=== PATIENT | female | born 1965 | race Two or more races ===

== ENCOUNTER 2023-06-24 13:27 | Emergency (ER) | payer MEDICAID ==
[~2023-06-24] VITALS: Ht 177.8 cm; Wt 63.0 kg
[2023-06-24 14:01] VITALS: BP 119/73; RESP 16; O2SAT 98
[2023-06-24 14:16] LABS: Basophils # (auto) 0.1 10 ^3/uL (0-0.2); Basophils % (auto) 0.4 % (0.0-2.0); Eosinophils # (auto) 0.2 10 ^3/uL (0-0.8); Eosinophils % (auto) 1.3 % (0.0-7.0); Hematocrit 39.5 % (36.0-46.0); Hemoglobin 13.2 g/dL (12.2-16.2); Lymphocytes % (auto) 25.2 % (10.0-50.0); Mean Corpuscular Hgb Conc. 33.4 g/dL (32.0-36.0); Mean Corpuscular Volume 86.8 fL (80.0-100.0); Monocytes # (auto) 0.7 10 ^3/uL (0-1.3); Monocytes % (auto) 5.6 % (0.0-12.0); Neutrophils # (auto) 8.1 10 ^3/uL (1.6-8.6); Neutrophils % (auto) 67.5 % (37.0-80.0); Nucleated Red Blood Cells % 0.1 %; Red Blood Cells 4.56 10^6/uL (4.0-5.20); Red Cell Distribution Width 14.4 % (11.8-14.3); White Blood Cell 11.9 10^3/uL (4.4-10.8)
[2023-06-24 14:31] LABS: Alanine Aminotransferase 10 U/L (7-40); Alkaline Phosphatase 148 U/L (46-116); Anion Gap 5 (5-15); Aspartate Aminotransferase 9 U/L (13-40); BUN/Creatinine Ratio 15.1 (10.0-20.0); Blood Urea Nitrogen 11 mg/dL (9-23); Calcium 10.9 mg/dL (8.7-10.4); Carbon Dioxide 29 mmol/L (20-30); Chloride 107 mmol/L (98-107); Glucose 113 mg/dL (74-106); Lipase 40 U/L (12-53); Sodium 141 mmol/L (136-145)
[2023-06-24 14:32] LABS: Albumin 4.2 g/dL (3.2-4.8); Bilirubin, Total 0.4 mg/dL (0.2-1.0); Total Protein 6.8 g/dL (5.7-8.2)
[2023-06-24 14:52] LABS: Urine Bacteria NONE SEEN /hpf (None Seen); Urine Blood Negative /uL (Negative); Urine Clarity HAZY (Clear); Urine Color Yellow (Yellow); Urine Protein, UAD Negative (Negative); Urine Specific Gravity 1.016 (1.001-1.035); Urine Urobilinogen Normal (Negative); Urine WBC 7 /hpf (0 - 5); Urine pH 6.5 (5.0-8.0)
[2023-06-24] MEDS ORDERED: PANTOPRAZOLE 40 MG/10 ML VIAL INJ IV ONE (15:45)
[2023-06-24 15:46] VITALS: PULSE 70
== END 2023-06-24 17:38 | disposition left against medical advice (07) ==
LOC: ER 13:27
DX: K44.9 Diaphragmatic hernia without obstruction or gangrene (principal); R10.32 Left lower quadrant pain; R10.12 Left upper quadrant pain; K21.9 Gastro-esophageal reflux disease without esophagitis; Z90.49 Acquired absence of other specified parts of digestive tract; Z98.890 Other specified postprocedural states
CPT/HCPCS: 36415; 74176; 80053; 81001; 83605; 83690; 84484; 85025; 93005

== ENCOUNTER 2023-06-29 08:35 | Inpatient (IN) | payer MEDICAID ==
[~2023-06-29] VITALS: Ht 165.1 cm; Wt 68.0 kg
[2023-06-29 09:01] LABS: Urine Bacteria None Seen /hpf (None Seen); Urine WBC None Seen /hpf (0 - 5)
[2023-06-29 10:08] LABS: Basophils # (auto) 0 10 ^3/uL (0-0.2); Basophils % (auto) 0.7 % (0.0-2.0); Eosinophils # (auto) 0.1 10 ^3/uL (0-0.8); Hematocrit 40.8 % (36.0-46.0); Hemoglobin 13.6 g/dL (12.2-16.2); Lymphocytes # (auto) 3.1 10 ^3/uL (0.4-5.4); Lymphocytes % (auto) 44.9 % (10.0-50.0); Mean Corpuscular Hgb Conc. 33.3 g/dL (32.0-36.0); Mean Corpuscular Volume 87.1 fL (80.0-100.0); Monocytes # (auto) 0.6 10 ^3/uL (0-1.3); Monocytes % (auto) 8.5 % (0.0-12.0); Neutrophils % (auto) 43.9 % (37.0-80.0); Red Blood Cells 4.68 10^6/uL (4.0-5.20); Red Cell Distribution Width 14.2 % (11.8-14.3); White Blood Cell 6.8 10^3/uL (4.4-10.8)
[2023-06-29 10:09] LABS: Urine Clarity CLEAR (Clear); Urine Color Yellow (Yellow); Urine Specific Gravity 1.025 (1.001-1.035)
[2023-06-29 10:13] LABS: Urine Protein, UAD Trace (Negative); Urine Urobilinogen Normal (Negative); Urine pH 5 (5.0-8.0)
[2023-06-29 10:35] LABS: Albumin 4.2 g/dL (3.2-4.8); Alkaline Phosphatase 132 U/L (46-116); Anion Gap 5 (5-15); Aspartate Aminotransferase 8 U/L (13-40); BUN/Creatinine Ratio 18.1 (10.0-20.0); Blood Urea Nitrogen 13 mg/dL (9-23); Calcium 10.8 mg/dL (8.5-10.1); Carbon Dioxide 28 mmol/L (20-30); Chloride 107 mmol/L (98-107); Glucose 101 mg/dL (74-106); Sodium 140 mmol/L (136-145)
[2023-06-29 10:36] LABS: Bilirubin, Total 0.6 mg/dL (0.2-1.0); Total Protein 7.1 g/dL (5.7-8.2)
[2023-06-29 11:07] LABS: Alanine Aminotransferase < 9 U/L (7-40)
[2023-06-29 13:01] LABS: Urine Blood Negative /uL (Negative)
[2023-06-29] MEDS ORDERED: DONNATAL 5ml ORAL Elix (BELLADONNA ALK-PHENOBARB) PO ONE (13:15)
[2023-06-29] MEDS ORDERED: MAALOX PLUS or MAALOX 30 ML PO ONE (13:15)
[2023-06-29] MEDS ORDERED: LIDOCAINE VISCOUS 2% 15ML UD PO ONE (13:15)
[2023-06-29] MEDS ORDERED: ONDANSETRON HCL 4 MG/2 ML VIAL IV ONE (15:00)
[2023-06-29] MEDS ORDERED: SODIUM CHLORIDE 0.9% 1,000 ML IV ONE (15:00)
[2023-06-29] MEDS ORDERED: MORPHINE SULFATE 4 MG/ML SYR/VIAL IV ONE (15:00)
[2023-06-29 15:56] LABS: INR 1.06 (0.9-1.15); Partial Thromboplastin Time 30.2 SEC (24.5-34.5); Prothrombin Time 11.1 sec (9.3-11.8)
[2023-06-29] MEDS ORDERED: MORPHINE SULFATE INJ 2 MG/ml SYRG IV PRN (18:00)
[2023-06-29] MEDS ORDERED: NITROGLYCERIN 0.4 MG SL TAB SL PRN (18:00)
[2023-06-29 19:16] LABS: Albumin 4.3 g/dL (3.2-4.8); Alkaline Phosphatase 148 U/L (46-116); Aspartate Aminotransferase < 8 U/L (13-40); Lipase 42 U/L (12-53); Magnesium 2.3 mg/dL (1.6-2.6)
[2023-06-29 19:17] LABS: Bilirubin, Total 0.4 mg/dL (0.2-1.0); Total Protein 7.1 g/dL (5.7-8.2)
[2023-06-29 19:21] LABS: Alanine Aminotransferase < 9 U/L (7-40)
[2023-06-29 19:35] LABS: Bilirubin, Direct 0.2 mg/dL (<0.3)
[2023-06-30 05:00] VITALS: BP 106/56; PULSE 53; RESP 17; TEMP 97.9; O2SAT 99
[2023-06-30] MEDS ORDERED: CHOL20002 (05:59)
[2023-06-30] MEDS ORDERED: PANT40T (05:59)
[2023-06-30 07:04] LABS: Chloride 110 mmol/L (98-107); Potassium 3.9 mmol/L (3.5-5.1); Sodium 141 mmol/L (136-145)
[2023-06-30 07:05] LABS: Anion Gap 3 (5-15); Calcium 10.3 mg/dL (8.7-10.4); Carbon Dioxide 28 mmol/L (20-30)
[2023-06-30 07:09] LABS: Basophils # (auto) 0 10 ^3/uL (0-0.2); Basophils % (auto) 0.3 % (0.0-2.0); Eosinophils # (auto) 0.2 10 ^3/uL (0-0.8); Eosinophils % (auto) 2.8 % (0.0-7.0); Hematocrit 38.2 % (36.0-46.0); Hemoglobin 12.9 g/dL (12.2-16.2); Lymphocytes # (auto) 2.8 10 ^3/uL (0.4-5.4); Lymphocytes % (auto) 45.1 % (10.0-50.0); Mean Corpuscular Hemoglobin 29.4 pg (28.0-32.0); Mean Corpuscular Hgb Conc. 33.9 g/dL (32.0-36.0); Mean Corpuscular Volume 86.8 fL (80.0-100.0); Monocytes # (auto) 0.5 10 ^3/uL (0-1.3); Monocytes % (auto) 8.5 % (0.0-12.0); Neutrophils # (auto) 2.7 10 ^3/uL (1.6-8.6); Neutrophils % (auto) 43.3 % (37.0-80.0); Nucleated Red Blood Cells % 0.1 %; Red Cell Distribution Width 14.1 % (11.8-14.3); White Blood Cell 6.3 10^3/uL (4.4-10.8)
[2023-06-30 07:10] LABS: BUN/Creatinine Ratio 16.4 (10.0-20.0); Blood Urea Nitrogen 12 mg/dL (9-23); Glucose 104 mg/dL (74-106)
[2023-06-30 09:00] VITALS: BP 102/62; PULSE 50; RESP 16; TEMP 98; O2SAT 96
[2023-06-30] MEDS: SODIUM CHLORIDE 0.9% 1,000 ML IV SCH ×2 (09:56→20:52)
[2023-06-30 13:00] VITALS: BP 107/64; PULSE 54; RESP 16; TEMP 98.1; O2SAT 94
[2023-06-30 16:33] VITALS: BP 123/63; PULSE 54; RESP 18; TEMP 98.7; O2SAT 96
[2023-06-30 20:00] VITALS: RESP 18; O2SAT 98
[2023-06-30 23:33] VITALS: BP 116/62; PULSE 50; RESP 18; TEMP 98.2; O2SAT 97
[2023-07-01] VITALS (9 sets, daily range): BP systolic 100–120; BP diastolic 59–64; PULSE 52–67; RESP 11–20; TEMP 97.6–98.1; O2SAT 95–99
[2023-07-01] MEDS ORDERED: FLUMAZENIL 0.1 MG/ML INJ 10ML MDV IV ONE (09:03)
[2023-07-01] MEDS ORDERED: NALOXONE HCL 0.4 MG/ML VIAL ONE (09:03)
[2023-07-01] MEDS: SODIUM CHLORIDE 0.9% 1,000 ML IV SCH ×2 (11:12→23:27)
[2023-07-01] MEDS ORDERED: LIDOCAINE VISCOUS 2% 15ML UD ONE (12:21)
[2023-07-01] MEDS ORDERED: SODIUM CHLORIDE LOCK 10 ML ONE (12:21)
[2023-07-01] MEDS: fentaNYL CITRATE 100 MCG/2 ML VL ONE ×2 (15:14→15:23)
[2023-07-01] MEDS: MIDAZOLAM HCL 5 MG/ML-1ML VIAL ONE ×2 (15:14→15:23)
[2023-07-01] MEDS: diphenhdrAMINE HCL 50 MG/1 ML VL ONE ×2 (15:14→15:17)
[2023-07-01] MEDS ORDERED: SUCRALFATE 1 GM/10 ML ORAL SUSP PO SCH (17:00)
[2023-07-01] MEDS ORDERED: CLINIMIX PER PHARMACY 0 ML IV SCH (17:45)
[2023-07-01] MEDS ORDERED: AMINO ACID INFUSION IN D10W 1,000 ML IV NR (20:00)
[2023-07-01] MEDS: ACCU-CHEK COMFORT CURVE STRIP VI SCH (23:27)
[2023-07-01] MEDS: InsuLIN REG 1unit/0.01ml Soln (100units/ml) SC SCH (23:27)
[2023-07-02] VITALS (7 sets, daily range): BP systolic 108–128; BP diastolic 58–70; PULSE 45–62; RESP 16–20; TEMP 97.8–98.4; O2SAT 96–100
[2023-07-02] MEDS ORDERED: DEXTROSE (50%) 50ML SYRG IV SCH
[2023-07-02] MEDS: ACCU-CHEK COMFORT CURVE STRIP VI SCH ×3 (05:24→18:40)
[2023-07-02] MEDS: InsuLIN REG 1unit/0.01ml Soln (100units/ml) SC SCH ×3 (05:24→18:00)
[2023-07-02 06:38] LABS: Potassium 3.9 mmol/L (3.5-5.1)
[2023-07-02 06:39] LABS: Calcium 10.2 mg/dL (8.7-10.4)
[2023-07-02 06:44] LABS: BUN/Creatinine Ratio 14.3 (10.0-20.0); Magnesium 1.9 mg/dL (1.6-2.6)
[2023-07-02 06:46] LABS: Albumin 3.6 g/dL (3.2-4.8); Phosphorus 2.3 mg/dL (2.4-5.1)
[2023-07-02 09:34] LABS: Hepatitis B Surface Antigen Negative (Negative)
[2023-07-02 09:45] LABS: Hepatitis C Antibody Negative (Negative)
[2023-07-02] MEDS ORDERED: SODIUM PHOSPHATES 20 MEQ in SODIUM CHL 0.9% 100 ML IV ONE (09:45)
[2023-07-02] MEDS ORDERED: GASTROGRAFIN 30 ML SOL ONE (09:49)
[2023-07-02] MEDS ORDERED: EZ-GAS II GRANULES (RADIOLOGY USE) PO ONE (09:56)
[2023-07-02] MEDS: SODIUM CHLORIDE 0.9% 1,000 ML IV SCH (12:26)
[2023-07-02] MEDS: AMINO ACID INFUSION IN D10W 1,000 ML IV NR (20:00)
[2023-07-03] MEDS: SODIUM CHLORIDE 0.9% 1,000 ML IV SCH ×2 (03:03→16:30)
[2023-07-03] MEDS: ACCU-CHEK COMFORT CURVE STRIP VI SCH ×4 (05:57→18:24)
[2023-07-03] MEDS: InsuLIN REG 1unit/0.01ml Soln (100units/ml) SC SCH ×4 (05:58→18:00)
[2023-07-03 07:02] LABS: Basophils # (auto) 0 10 ^3/uL (0-0.2); Basophils % (auto) 0.5 % (0.0-2.0); Eosinophils # (auto) 0.2 10 ^3/uL (0-0.8); Eosinophils % (auto) 2.1 % (0.0-7.0); Hematocrit 40.1 % (36.0-46.0); Hemoglobin 13.7 g/dL (12.2-16.2); Lymphocytes # (auto) 2.8 10 ^3/uL (0.4-5.4); Lymphocytes % (auto) 34.2 % (10.0-50.0); Mean Corpuscular Hemoglobin 29.5 pg (28.0-32.0); Mean Corpuscular Hgb Conc. 34.1 g/dL (32.0-36.0); Mean Corpuscular Volume 86.5 fL (80.0-100.0); Monocytes # (auto) 0.6 10 ^3/uL (0-1.3); Monocytes % (auto) 7.7 % (0.0-12.0); Neutrophils # (auto) 4.5 10 ^3/uL (1.6-8.6); Neutrophils % (auto) 55.5 % (37.0-80.0); Nucleated Red Blood Cells % 0.1 %; Red Blood Cells 4.63 10^6/uL (4.0-5.20); Red Cell Distribution Width 13.5 % (11.8-14.3); White Blood Cell 8.1 10^3/uL (4.4-10.8)
[2023-07-03 07:22] LABS: Albumin 3.8 g/dL (3.2-4.8); Alkaline Phosphatase 117 U/L (46-116); Anion Gap 4 (5-15); Aspartate Aminotransferase 10 U/L (13-40); BUN/Creatinine Ratio 9.9 (10.0-20.0); Blood Urea Nitrogen 7 mg/dL (9-23); Calcium 10.3 mg/dL (8.7-10.4); Carbon Dioxide 26 mmol/L (20-30); Chloride 109 mmol/L (98-107); Glucose 111 mg/dL (74-106); Magnesium 1.9 mg/dL (1.6-2.6); Potassium 3.7 mmol/L (3.5-5.1); Sodium 139 mmol/L (136-145)
[2023-07-03 07:23] LABS: Bilirubin, Total 0.4 mg/dL (0.2-1.0); Phosphorus 2.7 mg/dL (2.4-5.1); Total Protein 6.3 g/dL (5.7-8.2)
[2023-07-03 07:28] LABS: Alanine Aminotransferase < 9 U/L (7-40)
[2023-07-03 08:30] VITALS: PULSE 55; RESP 18; O2SAT 98
[2023-07-03 09:00] VITALS: BP 108/66; PULSE 57; RESP 18; TEMP 98; O2SAT 98
[2023-07-03] MEDS ORDERED: ceFAZolin 1GM/50ML 100 ML IV ONE (11:29)
[2023-07-03] MEDS ORDERED: MIDAZOLAM HCL 2MG/2ML 2ml VIAL (1mg/ml) ONE (12:32)
[2023-07-03] MEDS ORDERED: fentaNYL CITRATE 100 MCG/2 ML VL ONE ×2 (12:32→13:20)
[2023-07-03] MEDS ORDERED: HYDROmorphone HCL 2 MG/ML VL/or syr ONE (12:32)
[2023-07-03] MEDS ORDERED: DexAMETHasone SOD PHOS 10MG/1ML VIAL INJ ONE (13:08)
[2023-07-03] MEDS ORDERED: MIDAZOLAM HCL 2MG/2ML 2ml VIAL (1mg/ml) IV PRN (13:15)
[2023-07-03] MEDS ORDERED: LABETALOL HCL 5 MG/ML 4ML SYRINGE IV PRN (13:15)
[2023-07-03] MEDS ORDERED: KETOROLAC TROMETH 30 MG/ML 1ML VIAL IV ONE (13:15)
[2023-07-03] MEDS ORDERED: ePHEDrine SULFATE 50 MG/ML AMP IV PRN (13:15)
[2023-07-03] MEDS ORDERED: MORPHINE SULFATE 4 MG/ML SYR/VIAL IV PRN (13:15)
[2023-07-03] MEDS ORDERED: ONDANSETRON HCL 4 MG/2 ML VIAL IV PRN (13:15)
[2023-07-03] MEDS ORDERED: diphenhdrAMINE HCL 50 MG/1 ML VL ONE (13:20)
[2023-07-03] MEDS ORDERED: ONDANSETRON HCL 4 MG/2 ML VIAL ONE (13:29)
[2023-07-03] MEDS ORDERED: SUGAMMADEX 200mg/2ml Vial (100MG/ML) IV ONE (14:05)
[2023-07-03 14:41] VITALS: O2SAT 99
[2023-07-03] MEDS: HYDROmorphone HCL 2 MG/ML VL/or syr IV PRN ×2 (14:51→15:19)
[2023-07-03 17:00] VITALS: BP 132/82; PULSE 76; RESP 14; TEMP 97.5; O2SAT 99
[2023-07-03] MEDS ORDERED: metroNIDAZOLE 500MG/100ML 100 ML IV ONE (17:45)
[2023-07-03] MEDS: ONDANSETRON HCL 4 MG/2 ML VIAL IV PRN (18:24)
[2023-07-03] MEDS: MORPHINE SULFATE INJ 2 MG/ml SYRG IV PRN (18:25)
[2023-07-03 20:00] VITALS: PULSE 69; RESP 17; O2SAT 96
[2023-07-03] MEDS: metroNIDAZOLE 500MG/100ML 100 ML IV SCH (21:51)
[2023-07-03] MEDS: AMINO ACID INFUSION IN D10W 1,000 ML IV NR (21:51)
[2023-07-03 22:00] VITALS: BP_SYST 119; BP_SYST 137; BP_DIAS 78; BP_DIAS 79; PULSE 69; PULSE 83; RESP 18; TEMP 98; TEMP 99.6; O2SAT 95; O2SAT 96
[2023-07-04] VITALS (7 sets, daily range): BP systolic 130–135; BP diastolic 50–79; PULSE 61–84; RESP 14–19; TEMP 98–98.7; O2SAT 93–99
[2023-07-04] MEDS: ACCU-CHEK COMFORT CURVE STRIP VI SCH ×5 (00:02→23:36)
[2023-07-04] MEDS: InsuLIN REG 1unit/0.01ml Soln (100units/ml) SC SCH ×5 (00:09→23:36)
[2023-07-04] MEDS: ONDANSETRON HCL 4 MG/2 ML VIAL IV PRN ×2 (03:59→09:23)
[2023-07-04] MEDS: MORPHINE SULFATE INJ 2 MG/ml SYRG IV PRN ×5 (04:00→23:43)
[2023-07-04] MEDS: metroNIDAZOLE 500MG/100ML 100 ML IV SCH ×3 (05:39→21:07)
[2023-07-04] MEDS: SODIUM CHLORIDE 0.9% 1,000 ML IV SCH ×2 (05:46→17:42)
[2023-07-04 06:19] LABS: Basophils # (auto) 0 10 ^3/uL (0-0.2); Basophils % (auto) 0.1 % (0.0-2.0); Eosinophils # (auto) 0 10 ^3/uL (0-0.8); Hematocrit 42.2 % (36.0-46.0); Hemoglobin 14.2 g/dL (12.2-16.2); Lymphocytes # (auto) 1.4 10 ^3/uL (0.4-5.4); Lymphocytes % (auto) 9.8 % (10.0-50.0); Mean Corpuscular Hemoglobin 28.8 pg (28.0-32.0); Mean Corpuscular Hgb Conc. 33.5 g/dL (32.0-36.0); Monocytes % (auto) 6.9 % (0.0-12.0); Neutrophils # (auto) 12.3 10 ^3/uL (1.6-8.6); Neutrophils % (auto) 83.2 % (37.0-80.0); Nucleated Red Blood Cells % 0.1 %; Red Blood Cells 4.91 10^6/uL (4.0-5.20); Red Cell Distribution Width 14.1 % (11.8-14.3); White Blood Cell 14.7 10^3/uL (4.4-10.8)
[2023-07-04 06:35] LABS: Anion Gap 5 (5-15); Carbon Dioxide 25 mmol/L (20-30); Chloride 108 mmol/L (98-107); Potassium 3.9 mmol/L (3.5-5.1); Sodium 138 mmol/L (136-145)
[2023-07-04 06:36] LABS: Calcium 10.5 mg/dL (8.5-10.1)
[2023-07-04 06:40] LABS: GFR African American 136 mL/min; GFR Non-African American 112 mL/min; Glucose 136 mg/dL (74-106)
[2023-07-04 06:41] LABS: BUN/Creatinine Ratio 11.9 (10.0-20.0); Blood Urea Nitrogen 7 mg/dL (9-23)
[2023-07-04 06:42] LABS: Albumin 3.8 g/dL (3.2-4.8)
[2023-07-04 07:07] LABS: Magnesium 1.7 mg/dL (1.6-2.6)
[2023-07-04] MEDS: PANTOPRAZOLE 40 MG/10 ML VIAL INJ IV SCH (09:23)
[2023-07-04] MEDS: AMINO ACID INFUSION IN D10W 1,000 ML IV NR (21:06)
[2023-07-05 05:00] VITALS: BP 114/69; PULSE 78; RESP 16; TEMP 98.9; O2SAT 92
[2023-07-05] MEDS: metroNIDAZOLE 500MG/100ML 100 ML IV SCH ×3 (05:33→21:08)
[2023-07-05] MEDS: ACCU-CHEK COMFORT CURVE STRIP VI SCH ×3 (05:46→17:22)
[2023-07-05] MEDS: InsuLIN REG 1unit/0.01ml Soln (100units/ml) SC SCH ×3 (05:46→17:22)
[2023-07-05 06:01] LABS: Basophils # (auto) 0 10 ^3/uL (0-0.2); Basophils % (auto) 0.3 % (0.0-2.0); Eosinophils # (auto) 0 10 ^3/uL (0-0.8); Eosinophils % (auto) 0.5 % (0.0-7.0); Hematocrit 40.1 % (36.0-46.0); Hemoglobin 13.8 g/dL (12.2-16.2); Lymphocytes # (auto) 1.2 10 ^3/uL (0.4-5.4); Lymphocytes % (auto) 12.7 % (10.0-50.0); Mean Corpuscular Hemoglobin 29.5 pg (28.0-32.0); Mean Corpuscular Hgb Conc. 34.5 g/dL (32.0-36.0); Mean Corpuscular Volume 85.6 fL (80.0-100.0); Monocytes # (auto) 0.7 10 ^3/uL (0-1.3); Monocytes % (auto) 7.3 % (0.0-12.0); Neutrophils # (auto) 7.4 10 ^3/uL (1.6-8.6); Neutrophils % (auto) 79.2 % (37.0-80.0); Red Blood Cells 4.69 10^6/uL (4.0-5.20); White Blood Cell 9.3 10^3/uL (4.4-10.8)
[2023-07-05 06:06] LABS: Chloride 105 mmol/L (98-107); Potassium 3.3 mmol/L (3.5-5.1); Sodium 136 mmol/L (136-145)
[2023-07-05 06:07] LABS: Anion Gap 5 (5-15); Calcium 10.2 mg/dL (8.7-10.4); Carbon Dioxide 26 mmol/L (20-30)
[2023-07-05 06:12] LABS: Albumin 3.7 g/dL (3.2-4.8); BUN/Creatinine Ratio 12.9 (10.0-20.0); Blood Urea Nitrogen 8 mg/dL (9-23); GFR African American 128 mL/min; GFR Non-African American 106 mL/min; Glucose 133 mg/dL (74-106)
[2023-07-05 06:13] LABS: Magnesium 1.7 mg/dL (1.6-2.6)
[2023-07-05 06:14] LABS: Phosphorus 1.8 mg/dL (2.4-5.1)
[2023-07-05] MEDS: SODIUM CHLORIDE 0.9% 1,000 ML IV SCH ×2 (08:30→23:49)
[2023-07-05 09:00] VITALS: BP 117/71; PULSE 72; RESP 20; TEMP 99.3; O2SAT 94
[2023-07-05] MEDS ORDERED: POTASSIUM PHOSPHATE 44 MEQ in D5W 5% 250 ML IV ONE (10:00)
[2023-07-05] MEDS ORDERED: POTASSIUM PHOSPHATE 22 MEQ in SODIUM CHL 0.9% 100 ML IV ONE (11:15)
[2023-07-05] MEDS: PANTOPRAZOLE 40 MG/10 ML VIAL INJ IV SCH (12:39)
[2023-07-05 13:00] VITALS: BP 126/71; PULSE 77; RESP 19; TEMP 98.8; O2SAT 92
[2023-07-05 17:00] VITALS: BP 120/74; PULSE 67; RESP 17; TEMP 98.5; O2SAT 93
[2023-07-05] MEDS: ONDANSETRON HCL 4 MG/2 ML VIAL IV PRN (17:26)
[2023-07-05 20:00] VITALS: O2SAT 98
[2023-07-05] MEDS: AMINO ACID INFUSION IN D10W 1,000 ML IV NR (21:12)
[2023-07-05 22:00] VITALS: BP 116/70; PULSE 78; RESP 15; TEMP 98.9; O2SAT 93
[2023-07-06] MEDS: InsuLIN REG 1unit/0.01ml Soln (100units/ml) SC SCH ×5 (00:02→23:23)
[2023-07-06 05:00] VITALS: BP 112/73; PULSE 65; RESP 15; TEMP 98.2; O2SAT 92
[2023-07-06] MEDS: metroNIDAZOLE 500MG/100ML 100 ML IV SCH ×3 (05:16→21:11)
[2023-07-06] MEDS: ACCU-CHEK COMFORT CURVE STRIP VI SCH ×5 (05:25→23:24)
[2023-07-06 06:32] LABS: Basophils # (auto) 0 10 ^3/uL (0-0.2); Basophils % (auto) 0.6 % (0.0-2.0); Eosinophils # (auto) 0.2 10 ^3/uL (0-0.8); Hematocrit 40.6 % (36.0-46.0); Hemoglobin 13.7 g/dL (12.2-16.2); Lymphocytes # (auto) 2.2 10 ^3/uL (0.4-5.4); Lymphocytes % (auto) 28.5 % (10.0-50.0); Mean Corpuscular Hemoglobin 28.9 pg (28.0-32.0); Mean Corpuscular Hgb Conc. 33.8 g/dL (32.0-36.0); Mean Corpuscular Volume 85.7 fL (80.0-100.0); Monocytes # (auto) 0.8 10 ^3/uL (0-1.3); Monocytes % (auto) 10.4 % (0.0-12.0); Neutrophils # (auto) 4.4 10 ^3/uL (1.6-8.6); Neutrophils % (auto) 57.5 % (37.0-80.0); Nucleated Red Blood Cells % 0.4 %; Red Blood Cells 4.74 10^6/uL (4.0-5.20); Red Cell Distribution Width 14.2 % (11.8-14.3); White Blood Cell 7.6 10^3/uL (4.4-10.8)
[2023-07-06 06:42] LABS: Alanine Aminotransferase 10 U/L (7-40); Alkaline Phosphatase 96 U/L (46-116); Anion Gap 7 (5-15); BUN/Creatinine Ratio 16.2 (10.0-20.0); Blood Urea Nitrogen 11 mg/dL (9-23); Calcium 10.6 mg/dL (8.7-10.4); Carbon Dioxide 25 mmol/L (20-30); Chloride 106 mmol/L (98-107); Glucose 123 mg/dL (74-106); Magnesium 1.8 mg/dL (1.6-2.6); Potassium 3.5 mmol/L (3.5-5.1); Sodium 138 mmol/L (136-145)
[2023-07-06 06:43] LABS: Albumin 3.7 g/dL (3.2-4.8); Aspartate Aminotransferase < 8 U/L (13-40)
[2023-07-06 06:44] LABS: Bilirubin, Total 0.5 mg/dL (0.2-1.0); Total Protein 6.3 g/dL (5.7-8.2)
[2023-07-06 08:00] VITALS: PULSE 65; RESP 18; O2SAT 92
[2023-07-06 09:00] VITALS: BP 113/71; PULSE 65; RESP 18; TEMP 98.4; O2SAT 92
[2023-07-06] MEDS: PANTOPRAZOLE 40 MG/10 ML VIAL INJ IV SCH (10:32)
[2023-07-06 13:00] VITALS: BP 108/75; PULSE 72; RESP 20; TEMP 97.5; O2SAT 93
[2023-07-06] MEDS: SODIUM CHLORIDE 0.9% 1,000 ML IV SCH ×2 (13:03→21:24)
[2023-07-06] MEDS: MORPHINE SULFATE INJ 2 MG/ml SYRG IV PRN (14:09)
[2023-07-06 17:00] VITALS: BP 111/77; PULSE 71; RESP 20; TEMP 98.5; O2SAT 97
[2023-07-06] MEDS: AMINO ACID INFUSION IN D10W 1,000 ML IV NR (21:11)
[2023-07-07] MEDS: metroNIDAZOLE 500MG/100ML 100 ML IV SCH ×3 (05:20→22:24)
[2023-07-07] MEDS: ACCU-CHEK COMFORT CURVE STRIP VI SCH ×3 (05:27→17:19)
[2023-07-07] MEDS: InsuLIN REG 1unit/0.01ml Soln (100units/ml) SC SCH ×3 (05:27→17:19)
[2023-07-07 06:18] LABS: Potassium 3.2 mmol/L (3.5-5.1)
[2023-07-07 06:19] LABS: Calcium 10.4 mg/dL (8.7-10.4)
[2023-07-07 06:24] LABS: BUN/Creatinine Ratio 19.3 (10.0-20.0)
[2023-07-07 06:25] LABS: Albumin 3.5 g/dL (3.2-4.8); Magnesium 1.9 mg/dL (1.6-2.6)
[2023-07-07 06:26] LABS: Phosphorus 2.5 mg/dL (2.4-5.1)
[2023-07-07 06:39] LABS: Basophils # (auto) 0 10 ^3/uL (0-0.2); Basophils % (auto) 0.5 % (0.0-2.0); Eosinophils # (auto) 0.3 10 ^3/uL (0-0.8); Eosinophils % (auto) 3.5 % (0.0-7.0); Hematocrit 39.2 % (36.0-46.0); Hemoglobin 13.2 g/dL (12.2-16.2); Lymphocytes # (auto) 1.9 10 ^3/uL (0.4-5.4); Lymphocytes % (auto) 22.6 % (10.0-50.0); Mean Corpuscular Hemoglobin 29.1 pg (28.0-32.0); Mean Corpuscular Hgb Conc. 33.7 g/dL (32.0-36.0); Mean Corpuscular Volume 86.3 fL (80.0-100.0); Monocytes # (auto) 0.7 10 ^3/uL (0-1.3); Monocytes % (auto) 8.6 % (0.0-12.0); Neutrophils # (auto) 5.5 10 ^3/uL (1.6-8.6); Neutrophils % (auto) 64.8 % (37.0-80.0); Red Blood Cells 4.54 10^6/uL (4.0-5.20); Red Cell Distribution Width 14.1 % (11.8-14.3); White Blood Cell 8.4 10^3/uL (4.4-10.8)
[2023-07-07 08:00] VITALS: PULSE 64; RESP 16; O2SAT 96
[2023-07-07 09:00] VITALS: BP 103/58; PULSE 64; RESP 16; TEMP 98.3; O2SAT 96
[2023-07-07] MEDS: POTASSIUM CHL 20MEQ/100ML 100 ML IV SCH ×2 (09:25→13:22)
[2023-07-07] MEDS: PANTOPRAZOLE 40 MG/10 ML VIAL INJ IV SCH (09:25)
[2023-07-07 13:00] VITALS: BP 118/75; PULSE 77; RESP 20; TEMP 98.5; O2SAT 100
[2023-07-07] MEDS: SODIUM CHLORIDE 0.9% 1,000 ML IV SCH (16:19)
[2023-07-07 16:36] VITALS: BP 119/74; PULSE 70; RESP 18; TEMP 98.6; O2SAT 96
[2023-07-07 21:45] VITALS: BP 128/72; PULSE 70; RESP 14; TEMP 98.2; O2SAT 95
[2023-07-07] MEDS: AMINO ACID INFUSION IN D10W 1,000 ML IV NR (22:24)
[2023-07-08] MEDS: ACCU-CHEK COMFORT CURVE STRIP VI SCH ×3 (00:10→12:03)
[2023-07-08] MEDS: SODIUM CHLORIDE 0.9% 1,000 ML IV SCH (01:42)
[2023-07-08 05:00] VITALS: BP 112/66; PULSE 86; RESP 16; TEMP 99.3; O2SAT 94
[2023-07-08] MEDS: metroNIDAZOLE 500MG/100ML 100 ML IV SCH (05:10)
[2023-07-08] MEDS: InsuLIN REG 1unit/0.01ml Soln (100units/ml) SC SCH ×3 (05:22→12:00)
[2023-07-08 07:08] LABS: Potassium 3.4 mmol/L (3.5-5.1)
[2023-07-08 07:09] LABS: Calcium 10.1 mg/dL (8.7-10.4)
[2023-07-08 07:14] LABS: BUN/Creatinine Ratio 12.3 (10.0-20.0)
[2023-07-08 07:15] LABS: Albumin 3.6 g/dL (3.2-4.8); Magnesium 1.7 mg/dL (1.6-2.6)
[2023-07-08 07:16] LABS: Basophils # (auto) 0 10 ^3/uL (0-0.2); Basophils % (auto) 0.4 % (0.0-2.0); Eosinophils # (auto) 0.3 10 ^3/uL (0-0.8); Eosinophils % (auto) 3.1 % (0.0-7.0); Hematocrit 38.2 % (36.0-46.0); Lymphocytes # (auto) 2.1 10 ^3/uL (0.4-5.4); Lymphocytes % (auto) 20.1 % (10.0-50.0); Mean Corpuscular Hgb Conc. 34.1 g/dL (32.0-36.0); Monocytes # (auto) 0.9 10 ^3/uL (0-1.3); Monocytes % (auto) 8.9 % (0.0-12.0); Neutrophils % (auto) 67.5 % (37.0-80.0); Nucleated Red Blood Cells % 0.1 %; Phosphorus 2.4 mg/dL (2.4-5.1); White Blood Cell 10.3 10^3/uL (4.4-10.8)
[2023-07-08 08:00] VITALS: PULSE 65; RESP 16; O2SAT 95
[2023-07-08] MEDS: PANTOPRAZOLE 40 MG/10 ML VIAL INJ IV SCH (08:48)
[2023-07-08 09:00] VITALS: BP 109/73; PULSE 75; RESP 18; TEMP 98.8; O2SAT 94
[2023-07-08 13:00] VITALS: BP 105/70; PULSE 77; RESP 20; TEMP 97.7; O2SAT 96
[2023-07-08] MEDS: metroNIDAZOLE 500 MG TAB PO SCH ×2 (15:15→21:50)
[2023-07-08] MEDS: AMOXICILLIN TRIHYDRATE 250 MG CAP PO SCH ×2 (15:15→21:50)
[2023-07-08 16:45] VITALS: BP 110/70; PULSE 83; RESP 18; TEMP 98.2; O2SAT 95
[2023-07-08 22:00] VITALS: BP 120/68; PULSE 88; RESP 20; TEMP 99.1; O2SAT 95
[2023-07-09 05:00] VITALS: BP 105/71; PULSE 72; RESP 16; TEMP 97.7; O2SAT 96
[2023-07-09] MEDS: AMOXICILLIN TRIHYDRATE 250 MG CAP PO SCH ×2 (05:39→14:01)
[2023-07-09] MEDS: metroNIDAZOLE 500 MG TAB PO SCH ×2 (05:40→14:01)
[2023-07-09 06:46] LABS: Anion Gap 7 (5-15); Carbon Dioxide 24 mmol/L (20-30); Chloride 104 mmol/L (98-107); Potassium 3.7 mmol/L (3.5-5.1); Sodium 135 mmol/L (136-145)
[2023-07-09 06:47] LABS: Calcium 10.5 mg/dL (8.7-10.4)
[2023-07-09 06:52] LABS: BUN/Creatinine Ratio 14.5 (10.0-20.0); Blood Urea Nitrogen 9 mg/dL (9-23); Glucose 105 mg/dL (74-106)
[2023-07-09 06:53] LABS: Magnesium 1.9 mg/dL (1.6-2.6)
[2023-07-09 08:00] VITALS: PULSE 86; RESP 18; O2SAT 94
[2023-07-09 09:00] VITALS: BP 121/73; PULSE 90; RESP 18; TEMP 98.1; O2SAT 92
[2023-07-09] MEDS: PANTOPRAZOLE 40 MG/10 ML VIAL INJ IV SCH (10:23)
[2023-07-09] MEDS ORDERED: MET500T PO (10:30)
[2023-07-09] MEDS ORDERED: AMOX250C3 PO (10:30)
[2023-07-09 13:00] VITALS: BP 113/73; PULSE 89; RESP 18; TEMP 98.3; O2SAT 98
[2023-07-09 14:48] VITALS: BP 113/73; PULSE 89; RESP 18; TEMP 98.3; O2SAT 98
== END 2023-07-09 16:55 | disposition home or self-care (01) | DRG 220 ==
LOC: ER 08:35 → OVERFLOW 17:58 → WEST WING 22:08
PROVIDERS: ADMIT Internal Medicine Pulmonary Disease; ATTEND Student in an Organized Health Care Education/Training Program
PROC: 0DB98ZX Excision of Duodenum, Via Natural or Artificial Opening Endoscopic, Diagnostic (ICD-10-PCS; 2023-07-01)
PROC: 0DB68ZX Excision of Stomach, Via Natural or Artificial Opening Endoscopic, Diagnostic (ICD-10-PCS; 2023-07-01)
PROC: 0DQ40ZZ Repair Esophagogastric Junction, Open Approach (ICD-10-PCS; 2023-07-03)
PROC: 0D9670Z Drainage of Stomach with Drainage Device, Via Natural or Artificial Opening (ICD-10-PCS; 2023-07-03)
PROC: 0BQT0ZZ Repair Diaphragm, Open Approach (ICD-10-PCS; principal; 2023-07-03 12:48)
DX: K44.9 Diaphragmatic hernia without obstruction or gangrene (principal); E83.39 Other disorders of phosphorus metabolism; K21.9 Gastro-esophageal reflux disease without esophagitis; I88.0 Nonspecific mesenteric lymphadenitis; E87.6 Hypokalemia; K29.90 Gastroduodenitis, unspecified, without bleeding; K66.0 Peritoneal adhesions (postprocedural) (postinfection); Z83.3 Family history of diabetes mellitus; Z90.49 Acquired absence of other specified parts of digestive tract
CPT/HCPCS: 36415; 43239; 71045; 74022; 74176; 74246; 80048; 80053; 80069; 80076; 81001; 82962; 83690; 83735; 84100; 84443; 84484; 85025; 85610; 85730; 86803; 86850; 86900; 86901; 87340; 93005; 93306; 97110; 97116; 97163; 97530; C9113; G0378; J0690; J1100; J1815; J2250; J2405; J3480; J3490; J7060

== ENCOUNTER 2024-07-25 11:05 | Day surgery (SDC) | payer MEDICAID ==
[~2024-07-25] VITALS: Ht 165.1 cm; Wt 78.0 kg
[~2024-07-25 11:05] MED LIST: CHOL20002; OMEP20TA PO
[2024-07-25] MEDS ORDERED: PROPOFOL 10 MG/ML 20 ML IV ONE ×3 (14:21→15:52)
[2024-07-25] MEDS ORDERED: KETAMINE 50mg/ML 1ml syringe ONE (14:21)
[2024-07-25] MEDS ORDERED: DexAMETHasone SOD PHOS 10MG/1ML VIAL INJ ONE (14:21)
[2024-07-25] MEDS ORDERED: GLYCOPYRROLATE 0.2 MG/ML 1ML VIAL ONE (14:21)
[2024-07-25] MEDS ORDERED: LIDOCAINE 2% (LOCAL ANESTH.) PF 5ml SDV ONE (14:21)
[2024-07-25] MEDS ORDERED: ONDANSETRON HCL 4 MG/2 ML VIAL ONE (14:21)
[2024-07-25] MEDS ORDERED: ePHEDrine SULFATE 50 MG/ML AMP ONE (15:31)
[2024-07-25 16:06] VITALS: TEMP 98.6
--- NOTE | 2024-07-25 16:11 | POSTOP ---
Post-Operative Note Post-Operative Note Preop Diagnosis Right leg varicose veins Postop Diagnosis: Same Operation performed Right leg phlebectomy less than 20 incisions Specimen Right leg varicose vein Anesthesia: Regional Anesthesiologist: Spinal Blood Loss(fluid mgmt) 25 mL Surgeon Yash Sow MD Date 07/25/24 Time 16:11 YASH SOW Jr., MD Jul 25, 2024 16:11
--- NOTE | 2024-07-25 16:13 | DVHOP2 ---
Operative Report - 2 Report Details Date: 07/25/24 Preop Diagnosis: Right leg varicose veins Postop Diagnosis: Same Surgeon: Yash Sow MD Anesthesiologist: Spinal Anesthesia: Regional Consent: The patient was informed of the risks and benefits of the procedure. These include but are not limited to complications of anesthesia, postoperative infection, incomplete relief of symptoms, recurrence of symptoms, damage to blood vessels, nerves and tendons, deep venous thrombosis, pulmonary embolism and possible need for repeat surgery in the future. Estimated Blood Loss: 25 mL Name of Procedure Performed Right leg phlebectomy less than 20 incisions Procedure Details Procedure Details: Patient was identified in the preop hold area. She was stood up and marked a volar branch varicosities on her right leg. She was consented and preopped by myself. She was brought back to the operating room placed the operating table in a supine position after adequate induction of anesthesia antibiotics and time-out the right leg was prepped and draped in normal surgical fashion. Stab incisions were made directly over the marked branch varicosities using mosquitos and vein hooks the veins were teased out and ligated with 2-0 Vicryl suture. Specimens were sent off including a piecemeal portions of the varicose veins. Once all veins had been treated. The leg was washed and then dressed with Dermabond for the stab incisions followed by Steri-Strips followed by a multilayer compression wrap including Kerlix Mitseh wrap and Coban it patient awoke without any difficulties taken to the PACU in stable condition. Specimen: Right leg varicose vein Condition Stable Disposition pacu YASH SOW Jr., MD Jul 25, 2024 16:13
[2024-07-25] MEDS ORDERED: ePHEDrine SULFATE 50 MG/ML AMP IV PRN (16:15)
[2024-07-25] MEDS ORDERED: ONDANSETRON HCL 4 MG/2 ML VIAL IV PRN (16:15)
[2024-07-25] MEDS ORDERED: NALOXONE HCL 0.4 MG/ML VIAL IV PRN (16:15)
[2024-07-25] MEDS ORDERED: FLUMAZENIL 0.1 MG/ML INJ 10ML MDV IV PRN (16:15)
[2024-07-25] MEDS ORDERED: HYDROmorphone HCL 2 MG/ML VL/or syr IV PRN (16:15)
[2024-07-25] MEDS ORDERED: fentaNYL CITRATE 100 MCG/2 ML VL IV PRN (16:15)
[2024-07-25] MEDS ORDERED: hydrALAZINE HCL 20 MG/ML VL IV PRN (16:15)
[2024-07-25 18:20] VITALS: BP 128/72; PULSE 58; RESP 17; O2SAT 96
== END 2024-07-25 18:30 | disposition home or self-care (01) ==
LOC: SUR 11:05
PROVIDERS: ATTEND Surgery Vascular Surgery
DX: I83.91 Asymptomatic varicose veins of right lower extremity (principal); K21.9 Gastro-esophageal reflux disease without esophagitis; K76.0 Fatty (change of) liver, not elsewhere classified; Z90.49 Acquired absence of other specified parts of digestive tract; Z98.890 Other specified postprocedural states; Z87.891 Personal history of nicotine dependence
CPT/HCPCS: 37765; 88305; J1100; J2003; J2405; J2704